=== PATIENT | female | born 1990 ===

== ENCOUNTER 2016-08-21 13:44 | Inpatient (IN) ==
[~2016-08-21 13:44] MED LIST: Famotidine 20 MG/2 ML VIAL IVP PRN; Methylergonovine 0.2 MG/ML AMPUL IM ONE; Metoclopramide 10 MG/2 ML VIAL IVP PRN; Naloxone 0.4 MG/ML INJ IVP PRN; Ondansetron 4 MG/2 ML VIAL IVP PRN; [UNRECOGNIZED DRUG - OTHER] IVP ONE
[2016-08-21] MEDS ORDERED: *HR* Nalbuphine 20 MG/ML AMPUL IVP PRN (13:45)
--- NOTE | 2016-08-21 13:49 | OB/GYN History & Physical ---
Date of Encounter: 08/21/16 Time of Encounter: 13:46 Assessment and Plan (1) Spontaneous onset of labor Current visit: Yes Status: Acute Admit for expectant management and potential augmentation of labor. GBS negative. Epidural when requested. Will AROM after epidural. Anticipate . (2) 39 weeks gestation of Current visit: Yes Status: Acute History of Present Illness HPI: Ms. Powell is a 26 year old female presenting at 39 weeks gestation with c/o regular contractions every 5 minutes. Pt reports the contractions are getting stronger and are causing her significant pain in her lower back. No other complaints at this time. Good FM. Blood type O positive. Serologies and GBS negative. Rubella immune. Past Med Surg Social Fam HX - Past Medical History Medical history: no medical history - Past Surgical History Surgical History: no surgical history - Social History Smoking Status: Smoker, status unknown - Family History Mother History Unknown: Yes Family Member Ethnicity: Non- Obstetrical History - Pregnancies : 2 Para: 0 Term: 0 : 0 Ab's: 1 Livin Review of System OB All systems PM: reviewed and no additional remarkable complaints except as stated Exam - Constitutional Constitutional: well developed, well nourished, average body habitus, moderate distress - HEENT HEENT: Mucus Membranes Moist - Lungs Respiratory exam: CTAB - Cardiovascular Cardiovascular exam: RRR, +S1, +S2 - Abdomen Abdomen: Present: gravid, non tender - Extremities Extremities exam: normal inspection - Vagina Vagina: Present: normal moisture - Cervix Dilation: 3 - Uterus Uterus exam: Present: normal size - Anus/Rectum Anus/Rectum: Present: normal perianal skin Results All other labs normal. - VTE Reasons for not Prescribing Prophylaxis: Treatment not Indicated - Low risk for VTE
[2016-08-21] MEDS: Ringers Solution, Lactated 1,000 ML IVC SCH ×2 (13:58→15:13)
[2016-08-21 13:59] LABS: Basophils % 0.1 %; Hematocrit 36.7 % (35.3-44.9); Hemoglobin 12.4 g/dL (11.5-15.4); Immature Granulocytes % 0.5 % (0-4); Lymphocytes # 1.6 K/mcL (0.6-4.6); Lymphocytes % 10.8 %; Mean Corpuscular HGB Conc 33.8 g/dL (31.6-35.5); Mean Corpuscular Volume 91.8 fL (83.0-100.0); Mean Platelet Volume 10.4 fL (9.4-12.4); Monocytes # 0.5 K/mcL (0.0-1.3); Monocytes % 3.1 %; Neutrophils # 12.3 K/mcL (1.6-8.9); Platelet Count 214 K/mcL (140-400); Red Cell Distribution Width 13.4 % (11.5-14.5); Segmented Neutrophils % 85.5 %
[2016-08-21] MEDS ORDERED: Bupivacaine-MPF 0.25% 10 ML VIAL EP ONE (15:10)
[2016-08-21] MEDS ORDERED: *HR* FentaNYL (PF) 100 MCG/2 ML VIAL EP ONE (15:10)
[2016-08-21] MEDS ORDERED: EPHEDrine 50 MG/ML VIAL IVP PRN (15:10)
[2016-08-21] MEDS ORDERED: Ondansetron 4 MG/2 ML VIAL IVP PRN (15:10)
[2016-08-21] MEDS ORDERED: Epidural Premix (fent/bupiv) 110 ML EP SCH (15:15)
--- NOTE | 2016-08-21 15:17 | Anesthesia Evaluation PreOp ---
Date of Encounter: 08/21/16 Time of Encounter: 15:15 - Past History Planned Operation: BRIANNA Cardiac History: Denies any Significant Hx Pulmonary History: Denies Any Significant HX INK BLENDER History: Denies Any Significant HX Other Medical History: Denies Any Significant HX Anesthesia History: No Prior Anesthetic Complications, Past Anesthesia (wisdom teeth extraction) : Yes Alcohol Use: none - Meds/Allergy Pre-op Review Medications Reviewed: Yes Allergies Reviewed: Yes Beta Blockers on Current Med List: No Anesthesia Results - Labs 08/21/16 13:51 Anesthesia Exam BP 98/56 P 88 R 14 T 97.8 Height: 5'2" Weight: 68kg NPO (# of Hours): 4 Pain Scale: 8 Pain Scale Used: Numeric (1 - 10) - HEENT Pupil (Motor): Pupils equal Mallampati: II Teeth: Normal Oral Opening: Less than or equal to 3 - INK BLENDER LOC: Oriented INK BLENDER Motor: Normal RUE, Normal LUE, Normal RLE, Normal LLE, Normal Face INK BLENDER Sensory: Normal: RUE, LUE, RLE, LLE, Face - Cardiac Rhythm: Regular Murmur: None JVD: No Carotid Bruit: No - Pulmonary Breath Sounds: bilateral Clear Respiratory Effort: Symmetrical Anesthesia Assess/Plan ASA Score: 2 Modified Sarah Scale for Level of Consciousness: Cooperative, oriented, and tranquil Anesthetic Plan: Regional Autologous Blood: No Monitoring Plan: Standard Monitors Recovery Plan: Other
[2016-08-21] MEDS ORDERED: Bupivacaine-MPF 0.25% 10 ML VIAL ONE (15:26)
[2016-08-21] MEDS ORDERED: *HR* FentaNYL (PF) 100 MCG/2 ML VIAL ONE (15:26)
[2016-08-21] MEDS ORDERED: Epidural Premix (fent/bupiv) 110 ML EP ONE (15:26)
--- NOTE | 2016-08-21 16:04 | Anesthesia Procedures ---
Date of Encounter: 08/21/16 Time of Encounter: 15:27 Procedures: Anesthesia - Epidural/Spinal Patient ID/Chart reviewed: Yes Patient examined: Yes OB Eval: Gestational age: 39 OB Eval: : 1 OB Eval: Hx Para: 0 OB Eval: Dilated at (cm): 3 OB Eval: Contractions: Non-stressed pattern Consent Obtained: Yes Supplemental Oxygen: None/Room Air Site Prep: Aseptic Technique, Sterile prep and drape, Povidone-Iodine 1% Patient position: upright Local Anesthetic: Lidocaine 1% Amount of Local Anesthetic used: 3 Touhy Needle Gauge: 18 Touhy Needle Depth (cm): 5 Catheter Depth at Skin (cm): 14 Test Dose (1.5% Lido + Epi): Volume given (mls): 3 Test Dose Result: Negative Loading Dose: 0.25% Marcaine (mls): 6 Loading Dose: Fentanyl (mcg): 100 Loading Dose Administered: Thru Catheter Infusion Med: 0.125% Bupivacaine w/ 2 mcg/ml Fentanyl Infusion Rate (mls/hr): [address]: Tegaderm, Tape Interspace Used: L4-L5 Loss of Resistance (ELIZABETH): Yes Blood: No CSF: No Paresthesia: No Procedure: BRIANNA placed in upright position 1st pass without any immediate noted complications. VSS and FHT stable throughout Vitals + FHT's: 1527 BP 109/66 P 78 R 16 1549 BP 98/61 P 74 R 14 FHT 120s
--- NOTE | 2016-08-21 16:43 | OB Labor Progress Note ---
Date of Encounter: 08/21/16 Time of Encounter: 16:38 Labor Progress Note - Subjective Subjective: Pt comfortable with epidural - Cervix Cervix: 5/100/0 - Heart Tones Heart Tones: Category I - [place]: 5-9 minutes - Interventions Interventions: AROM for moderate amount blood tinged, clear fluid - Plan Plan: Continue to monitor. Anticipate .
[2016-08-21] MEDS ORDERED: Oxytocin 20 units/ LR 1000 mL 20 UNIT/1,000 ML BAG IVC SCH (18:45)
--- NOTE | 2016-08-21 22:20 | OB/GYN Procedure Note ---
Delivery - Delivery Date: 08/21/16 Provider: Jerod Berger Intrapartum events: none Delivery augmentation: rupture of membranes, pitocin Delivery monitor: external FHT, external uterine Anesthesia: epidural Estimated Blood Loss: 250 - Infant (s) A Infant Delivery Date: 08/21/16 Delivery Time: 21:51 Presentation: vertex Position: SOLO Gender: Female Viability: Viable Weight Gram: 2.875 kg at 1 minute: 8 at 5 mins: 9 Shoulder Dystocia: not encountered Specimens collected: cord blood Placenta: spontaneous Cord: 3 umbilical vessels - Repair Laceration Description: Perineal - 2nd Degree - Complications Delivery complications: none - Disposition Mom disposition: stable in LDR [place] disposition: stable in LDR - Comments Comments: Pt s/p without difficulty from SOLO presentation. Spont delivery of normal placenta with 3 vc. No complications. Mother and recovered in LDR.
[2016-08-22] MEDS ORDERED: Measles/Mumps/Rubella Vacc 0.5 ML VIAL SQ PRN (01:01)
[2016-08-22] MEDS ORDERED: Acetaminophen 325 MG TABLET PO PRN (01:01)
[2016-08-22] MEDS ORDERED: Benzocaine/Menthol 56 GM AEROSOL SPRAY TP PRN (01:01)
[2016-08-22] MEDS ORDERED: Oxytocin 20 units/ LR 1000 mL 20 UNIT/1,000 ML BAG IVC SCH (01:01)
[2016-08-22] MEDS ORDERED: Lanolin 7 G OINT...G. TP PRN (01:01)
[2016-08-22] MEDS: Prenatal Vit/FA 1 EACH TABLET PO SCH (10:13)
--- NOTE | 2016-08-22 10:18 | OB/GYN Progress Note ---
Date of Encounter: 08/22/16 Time of Encounter: 09:00 - Assessment and Plan (1) Vaginal delivery Current Visit: Yes Status: Acute Pt meeting milestones. Continue to work on . Anticipate discharge home PPD#2. (2) Mother currently breast-feeding Current Visit: Yes Status: Acute Subjective - Subjective Patient reports: appetite normal, voiding normally, pain well controlled, ambulating normally : doing well Objective - Latest Vital Signs Latest vital signs: Vital Signs Temp Pulse Resp BP Pulse Ox 08/22/16 02:28 98.2 F 89 16 104/69 96 08/22/16 01:03 98.8 F 79 16 103/68 96 08/22/16 00:15 98.1 F 76 16 105/73 95 Intake and Output 08/21/16 08/22/16 08/22/16 23:59 07:59 15:59 Intake Total 0 / 0 Output Total 300 / 300 1100 / 1100 Balance -300 / -300 -1100 / -1100 Intake: Oral 0 / 0 Output: Urine 1100 / 1100 Catheter 300 / 300 Other: Weight 67.6 kg Patient Weight 08/22/16 23:59 Weight 67.6 kg - Exam Lungs: bilateral: normal Chest: Normal S1, Normal S2 Extremities: Present: normal Abdomen: Present: soft Uterus: Present: firm - Labs Labs: Laboratory Results - last 24 hr 08/21/16 13:51 WBC 14.4 H RBC 4.00 Hgb 12.4 Hct 36.7 MCV 91.8 MCH 31.0 MCHC 33.8 RDW 13.4 Plt Count 214 MPV 10.4 Immature Gran % 0.5 Seg Neutrophils % 85.5 Lymphocytes % 10.8 Monocytes % 3.1 Eosinophils % 0.0 Basophils % 0.1 Neutrophils # 12.3 H Lymphocytes # 1.6 Monocytes # 0.5 Eosinophils # 0.0 Basophils # 0.0
[2016-08-22] MEDS: Ibuprofen 600 MG TABLET PO PRN ×2 (10:22→20:04)
[2016-08-23] MEDS: Prenatal Vit/FA 1 EACH TABLET PO SCH (08:44)
[2016-08-23] MEDS: Ibuprofen 600 MG TABLET PO PRN (08:44)
[2016-08-23 08:59] VITALS: BP 103/69
--- NOTE | 2016-08-23 10:22 | Discharge Summary ---
Date of Encounter: 08/23/16 Time of Encounter: 10:20 - Discharge Diagnosis (1) Vaginal delivery Priority: Primary Status: Acute - Discharge Medications Prescriptions: Ibuprofen [Motrin] 600 mg PO Q6HR PRN #40 tablet PRN Reason: Cramping Home Medications: Ibuprofen [Motrin] 600 mg PO Q6HR PRN #40 tablet 08/23/16 [Rx] Allergies/Adverse Reactions: Allergies No Known Allergies Allergy (Verified 08/21/16 19:27) Data Procedures and tests throughout hospitalization: Laboratory Tests 08/21/16 13:51 WBC 14.4 H RBC 4.00 Hgb 12.4 Hct 36.7 MCV 91.8 MCH 31.0 MCHC 33.8 RDW 13.4 Plt Count 214 MPV 10.4 Immature Gran % 0.5 Seg Neutrophils % 85.5 Lymphocytes % 10.8 Monocytes % 3.1 Eosinophils % 0.0 Basophils % 0.1 Neutrophils # 12.3 H Lymphocytes # 1.6 Monocytes # 0.5 Eosinophils # 0.0 Basophils # 0.0 - Impressions Doing well without c/o Date of admission: 08/21/16 13:44 Primary care physician: PCP NO Consults: 08/22/16 01:01 Consult to Manager Program Management [CONS] Routine Comment: Vaginal delivery, consult needed - Patient Status Disposition: Home, Self-Care Condition: Good Overall status at discharge: patient is progressing back to baseline - Discharge Instructions Instructions: Vaginal Delivery (DC) Follow Up With: NO,PCP [Primary Care Provider] - Additional Instructions: Perineal Care: Always wipe front to back Change your pad frequently Use your nicole bottle with warm water and spray front to back Do not douche, use tampons, have sexual intercourse or put anything in your vagina for 4-6 weeks after delivery Bleeding: Vaginal bleeding can last up to 6 weeks Your menstrual period may return as early as 6 weeks after you are discharged from the hospital [place]/Stitches Care: Vaginal Delivery Vaginal stitches will dissolve within 4-6 weeks Follow perineal care instructions Care Stitches will dissolve on their own If you have lois, they will need to be removed in the doctors office within 5-7 days. You may shower with stitches or lois Drip plan or soapy water over the incision to clean. Pat dry gently with a clean towel. Make sure you completely dry under the skin folds DO NOT USE powders, lotions, rubbing alcohol or hydrogen peroxide on or around your incision. This will slow your wound healing It is normal to have soreness, burning, tingling, itchiness and/or numbness as your incision heals Activity: Rest frequently Do not lift anything heavier than a gallon of milk, up to 10-15 pounds No driving for 1-2 weeks for Vaginal delivery No driving for 2-4 weeks for delivery Take stairs slowly, one at a time Gradually increase your daily activity until you are back to your normal routine Do not exercise until you have had your follow-up appointment Bathing: Take a shower daily Do not take a tub bath for the first 4 weeks Diet: Drink plenty of water and fruit juices Eat a well-balanced diet with foods high in fiber such as fruits and vegetables Depression: Your hormones have a major impact on your feelings and emotions. Hormone imbalance may cause changes in your mood, creating unfamiliar thoughts and actions. Support is available to help you understand and cope with these feelings and mood changes. If you answer yes to any of the following questions, please call your health care provider: Are you having trouble sleeping? Are you feeling isolated? Have you lost your appetite? Are you having thoughts of hurting yourself or others? WARNING SIGNS: Heavy bleeding from the vagina (blood is bright red and soaks a sanitary pad in an hour or less.) Passing a blood clot larger than your fist Discharge from the vagina that has a bad odor Temperature over 100.4 F, or if you feel cold and have chills An episiotomy site that is warm, swollen or oozing. Use a mirror if needed Urination (pee) that is painful, very red and swollen or leaking fluid An incision that is painful, very red and swollen and leaking fluid An incision that has come open Breasts that are painful or full with flu like symptoms Redness, warmth or swelling in the calf of your leg Trouble breathing, dizziness, visual disturbance or faintness *Notify your health care provider immediately or go to the nearest Emergency Room if you experience any of the above signs.* To contact the nurses station 24 hours a day, For non-urgent, routine questions, please call the office at - Diet and Activity Activity: increase activity as tolerated Diet: advance to your usual diet Hospital Course BUS BO[employer] Time Attestation: Total time spent providing and/or coordinating discharge services: Exam - Constitutional Vitals: Temp Pulse Resp BP Pulse Ox 97.9 F 91 16 103/69 96 08/23/16 08:55 08/23/16 08:55 08/23/16 08:55 08/23/16 08:55 08/23/16 08:55 General appearance IM: A&O X 3 - Respiratory Respiratory exam: Present: CTAB - Cardiovascular Cardiovascular exam IM: Present: RRR - GI/Abdominal GI/Abdominal exam IM: normal bowel sounds - Extremities Exam Extremities exam IM: Present: full ROM - Neurological Exam Neurological exam: oriented X3 - VTE Reasons for not Prescribing Prophylaxis: Treatment not Indicated - Low risk for VTE
== END 2016-08-23 10:55 | disposition home or self-care (01) | DRG 775 ==
LOC: 1NENULAB → 1NENUOBS 08-22 00:28
PROVIDERS: ADMIT Obstetrics & Gynecology; ATTEND Obstetrics & Gynecology